=== PATIENT | female | born 1995 | race African-American/Black ===

== ENCOUNTER 2017-08-19 13:10 | Emergency (ER) | payer OTHER ==
[~2017-08-19] VITALS: Ht 154.9 cm; Wt 62.1 kg
[~2017-08-19 13:10] MED LIST: ZOFRAN ODT4 M1 PO
[2017-08-19 14:09] LABS: HEMATOCRIT 31.6 % (37.0-47.0); HEMOGLOBIN 11.1 gm/dL (12.0-15.0); MCH 32.2 pg (26.0-34.0); MCHC 35.2 g/dL (28.0-37.0); MCV 91.4 fL (80.0-100.0); RBC 3.46 mil/uL (4.20-5.00); RDW 12.3 % (10.5-14.5); WBC 5.7 thou/uL (4.0-11.0)
[2017-08-19 14:12] LABS: URINE BILIRUBIN NEGATIVE (Negative); URINE BLOOD 3+ (Negative); URINE CLARITY CLEAR; URINE COLOR RED; URINE GLUCOSE-RANDOM* NEGATIVE (Negative); URINE KETONES 2+ (Negative); URINE PROTEIN (DIPSTICK) 3+ (Negative); URINE SPECIFIC GRAVITY >= 1.030 (1.005-1.035)
[2017-08-19 14:13] LABS: URINE LEUKOCYTES-REFLEX 2+ (Negative); URINE NITRITE-REFLEX POSITIVE (Negative)
[2017-08-19 14:17] LABS: CALCIUM 8.9 mg/dL (8.5-10.1); CREATININE 0.7 mg/dL (0.6-1.0); POTASSIUM 3.3 mmol/L (3.5-5.1)
[2017-08-19 14:19] LABS: URINE RBC >20 Many /HPF (0-2)
[2017-08-19 14:23] LABS: BACTERIA-REFLEX 1-9 Few /HPF (None Seen); MUCUS 4-6 Moderate strn/LPF (None Seen); SQUAMOUS 4-10 Moderate /LPF (0-3); URINE WBC-REFLEX 0-5 Rare /HPF (0-5)
[2017-08-19 14:24] LABS: TOTAL BILIRUBIN 0.6 mg/dL (<0.1-1.0); TOTAL PROTEIN 7.3 g/dL (6.4-8.2)
[2017-08-19 16:49] VITALS: BP 122/74
[2017-08-19] MEDS ORDERED: HYDROCODONE-AP1 EAC6 PO (16:53)
== END 2017-08-19 17:08 | disposition home or self-care (01) ==
LOC: ER 13:10
PROVIDERS: Physician Assistant
DX: O03.9 Complete or unspecified spontaneous abortion without complication (principal); O99.281 Endocrine, nutritional and metabolic diseases complicating pregnancy, first trimester; O73.1 Retained portions of placenta and membranes, without hemorrhage; E87.6 Hypokalemia; Z90.89 Acquired absence of other organs; Z3A.01 Less than 8 weeks gestation of pregnancy